=== PATIENT | female | born 1980 | race Caucasian/White ===

== ENCOUNTER 2020-11-13 09:46 | Emergency (ER) | payer OTHER ==
[~2020-11-13] VITALS: Ht 165.1 cm; Wt 65.8 kg
[2020-11-13 09:55] VITALS: BP_SYST 130
[2020-11-13 10:01] VITALS: BP_SYST 130
[2020-11-13 10:32] VITALS: BP_SYST 130
== END 2020-11-13 10:32 ==
LOC: SED 09:46
DX: S29.9XXA Unspecified injury of thorax, initial encounter (principal); Z88.0 Allergy status to penicillin; Z88.5 Allergy status to narcotic agent; V47.5XXA Car driver injured in collision with fixed or stationary object in traffic accident, initial encounter; Y93.89 Activity, other specified; Y92.89 Other specified places as the place of occurrence of the external cause; Y99.8 Other external cause status
CPT/HCPCS: 99283